=== PATIENT | female | born 1995 | race Caucasian/White ===

== ENCOUNTER 2018-09-14 10:57 | Emergency (ER) | payer MEDICAID | END 2018-09-14 11:51 | disposition home or self-care (01) | LOC: FTE 10:57 | DX: O99.511 Diseases of the respiratory system complicating pregnancy, first trimester (principal); M54.5 Low back pain; J40 Bronchitis, not specified as acute or chronic; Z3A.09 9 weeks gestation of pregnancy | CPT/HCPCS: 99283; Z7502 ==